=== PATIENT | female | born 1970 | race Caucasian/White ===

== ENCOUNTER 2017-04-13 14:07 | Emergency (ER) | payer MEDICAID ==
[~2017-04-13] VITALS: Ht 165.1 cm; Wt 54.5 kg
[2017-04-13] MEDS ORDERED: KETOROLAC TROMETHAMINE 60 MG/2 ML VIAL IM ONE (15:15)
[2017-04-13 18:41] VITALS: BP 115/70
== END 2017-04-13 19:18 | disposition short-term general hospital (02) ==
LOC: EMS 14:08
DX: T17.228A Food in pharynx causing other injury, initial encounter (principal)
CPT/HCPCS: 70490; 71020; 96372; 99285; J1885; 99284